=== PATIENT | female | born 1970 | race Caucasian/White ===

== ENCOUNTER 2022-11-13 12:30 | Outpatient (CLI) | payer BC | END 2022-11-13 12:31 | disposition home or self-care (01) | LOC: BICMRI 12:30 | PROVIDERS: ATTEND Oral & Maxillofacial Surgery | DX: M26.69 Other specified disorders of temporomandibular joint (principal); M79.18 Myalgia, other site; M26.643 Arthritis of bilateral temporomandibular joint | CPT/HCPCS: 70336 ==

== ENCOUNTER 2022-12-01 02:29 | Observation (INO) | payer BC ==
[2022-12-01 04:35] VITALS: BMI 32.5
[2022-12-01] MEDS ORDERED: hydrALAZINE 20 MG/ML VIAL SLOW IVP PRN (04:45)
[2022-12-01] MEDS ORDERED: Acetaminophen 325 MG TAB PO PRN (04:46)
[2022-12-01] MEDS ORDERED: Calcium Carbonate 500 MG ChewTAB PO PRN (04:46)
[2022-12-01] MEDS ORDERED: Ondansetron ODT 4 MG TAB PO PRN (04:46)
[2022-12-01] MEDS ORDERED: Lorazepam 2 MG/ML VIAL SLOW IVP PRN (05:51)
[2022-12-01] MEDS ORDERED: Losartan 25 MG TAB PO SCH (09:00)
[2022-12-01] MEDS ORDERED: Clopidogrel Bisulfate 75 MG TAB PO SCH (09:00)
[2022-12-01] MEDS ORDERED: Famotidine 20 MG TAB PO SCH (09:00)
[2022-12-01] MEDS ORDERED: Aspirin 81 mg Enteric Coated Tablet PO SCH (09:00)
[2022-12-01] MEDS ORDERED: Ezetimibe 10 MG TAB PO SCH (09:00)
[2022-12-01 11:58] VITALS: TEMP 97.9
[2022-12-01 16:14] VITALS: BP 114/75
[2022-12-01] MEDS ORDERED: Atorvastatin Calcium 40 MG TAB PO SCH (21:00)
== END 2022-12-01 14:35 | disposition home or self-care (01) ==
LOC: 2SE 02:29 → ERHOLD 10:24 → 2SE 10:25
PROVIDERS: ADMIT Student in an Organized Health Care Education/Training Program; ATTEND Family Medicine
DX: R20.2 Paresthesia of skin (principal); I10 Essential (primary) hypertension; I08.1 Rheumatic disorders of both mitral and tricuspid valves; F15.10 Other stimulant abuse, uncomplicated; I25.10 Atherosclerotic heart disease of native coronary artery without angina pectoris; F17.200 Nicotine dependence, unspecified, uncomplicated; Z79.899 Other long term (current) drug therapy; Z79.01 Long term (current) use of anticoagulants; Z88.6 Allergy status to analgesic agent; Z95.5 Presence of coronary angioplasty implant and graft
CPT/HCPCS: 70551; 93306; 96374; G0378; J2060